=== PATIENT | male | born 1970 | race Caucasian/White ===

== ENCOUNTER 2021-08-11 14:19 | Emergency (ER) | payer OTHER, SELFPAY ==
[~2021-08-11] VITALS: Ht 177.8 cm; Wt 93.5 kg
[2021-08-11 15:13] LABS: BASOPHILS % (AUTO) 1 % (0-1); EOSINOPHILS % (AUTO) 1 % (1-7); LYMPHOCYTES % (AUTO) 40 % (22-44); MEAN CORPUSCULAR HGB CONC 34.6 g/dL (33.2-36.2); MONOCYTES % (AUTO) 8 % (2-9); NEUTROPHILS % (AUTO) 51 % (42-75); PLATELET COUNT 214 x10^3/uL (130-400); RED BLOOD COUNT 4.97 x10^6/uL (4.38-5.82); RED CELL DISTRIBUTION WIDTH 13.4 % (9.4-14.8)
[2021-08-11 15:20] LABS: CALCIUM 8.2 mg/dL (8.5-10.1); CHLORIDE 104 mmol/L (98-107)
[2021-08-11 15:29] LABS: ALANINE AMINOTRANSFERASE 37 U/L (12-78); ALKALINE PHOSPHATASE 103 U/L (45-117); ANION GAP 8 mmol/L (5-15); BILIRUBIN,TOTAL 0.6 mg/dL (0.2-1.0); CREATININE 1.36 mg/dL (0.7-1.3); TOTAL PROTEIN 7.6 g/dL (6.4-8.2); TROPONIN I < 0.015 ng/mL (0.000-0.045)
--- NOTE | 2021-08-11 17:13 | NUR ---
VSS. AMBULATORY BACK OUT TO LOBBY
--- NOTE | 2021-08-11 19:04 | NUR ---
pt to room from lobby
[2021-08-11 19:18] VITALS: BP 136/79
--- NOTE | 2021-08-11 19:21 | NUR ---
FIRST CONTACT: PATIENT REPORTS MULTIPLE EPISODES OF PALPITATIONS WHERE HIS WATCH SAID HIS HEART RATE WAS IN THE 120S. PATIENT REPORTS SOB, TINGLING IN ARMS, AND MILD CHEST PAIN WITH THESE EPISODES. PATIENT DENIES ANY SYMPTOMS AT THIS TIME. PATIENT DENIES ETOH, DRUG USE. PATIENT PLACED ON MONITOR.
--- NOTE | 2021-08-11 20:15 | NUR ---
Patient given discharge instructions and they have confirmed that they understand the instructions. Patient ambulatory with steady gait. NAD, all questions answered appropriately, denies additional needs at this time. No personal belongings left in room after discharge.
== END 2021-08-11 20:17 | disposition home or self-care (01) ==
LOC: ED 14:24
DX: R00.2 Palpitations (principal); R07.89 Other chest pain
CPT/HCPCS: 36415; 71045; 80053; 84443; 84484; 85025; 93005; 99285